=== PATIENT | female | born 1930 | race Caucasian/White ===

== ENCOUNTER → 2017-08-29 | Outpatient (CLI) | payer MEDICARE, BC ==
[~2017-08-29] MED LIST: ASPI81CH; Cleocin HCl300 MG PO; ERGO400; EZET10-10 PO; FURO40; HYDR1TAB94 PO; METO25ER PO; OMEP20ER PO; POTCHL20ER PO; Prednisone20 MG PO; Prilosec20 MG PO; Zantac150 MG PO
== END | disposition home or self-care (01) ==
LOC: OLS 15:49 → LAB SHORT 15:49
DX: A49.01 Methicillin susceptible Staphylococcus aureus infection, unspecified site (principal)
CPT/HCPCS: 87070; 87077; 87186; 87205

== ENCOUNTER 2017-12-27 00:11 | Day surgery (SDC) | payer MEDICARE, BC ==
[~2017-12-27 00:11] MED LIST changes: +Bactrim Ds Tab1 EACH PO; +CELE200; +FLONASE ALLERG9.9 ML; +Furosemide20 MG PO; +METO50ER PO; +OMEPRAZOLE MAGN20 MG PO; +PRAVASTATIN SOD10 MG
== END 2017-12-27 22:39 | disposition home or self-care (01) ==
LOC: WOUND
DX: L97.929 Non-pressure chronic ulcer of unspecified part of left lower leg with unspecified severity (principal); L97.919 Non-pressure chronic ulcer of unspecified part of right lower leg with unspecified severity; I73.9 Peripheral vascular disease, unspecified; R60.0 Localized edema; I10 Essential (primary) hypertension
CPT/HCPCS: 87070; 87205

== ENCOUNTER 2018-02-21 00:07 | Day surgery (SDC) | payer MEDICARE, BC ==
[~2018-02-21 00:07] MED LIST changes: -CELE200; +CELE200 PO; +CEPH250A PO; +CEPH500 PO; +DONE10 PO; +HYDROCREAM28.4 GM TOP; +LATANOPROST 0.7.5 ML BOTHEYES; +MICARDIS HCT PO; -PRAVASTATIN SOD10 MG; +PRAVASTATIN SOD10 MG PO; +TIMOPTIC 0.5%1 EACH LEFTEYE
== END 2018-02-21 22:41 | disposition home or self-care (01) ==
LOC: WOUND 00:07
DX: L97.822 Non-pressure chronic ulcer of other part of left lower leg with fat layer exposed (principal); L98.499 Non-pressure chronic ulcer of skin of other sites with unspecified severity; I87.2 Venous insufficiency (chronic) (peripheral); I73.9 Peripheral vascular disease, unspecified; R60.9 Edema, unspecified; I10 Essential (primary) hypertension

== ENCOUNTER 2018-03-28 00:24 | Day surgery (SDC) | payer MEDICARE, BC | END 2018-03-28 23:01 | disposition home or self-care (01) | LOC: WOUND 00:24 | DX: L97.822 Non-pressure chronic ulcer of other part of left lower leg with fat layer exposed (principal); L98.499 Non-pressure chronic ulcer of skin of other sites with unspecified severity; I87.2 Venous insufficiency (chronic) (peripheral); I73.9 Peripheral vascular disease, unspecified; R60.9 Edema, unspecified; I10 Essential (primary) hypertension ==

== ENCOUNTER 2018-04-04 14:20 | Day surgery (SDC) | payer MEDICARE, BC | END 2018-04-04 22:50 | disposition home or self-care (01) | LOC: WOUND 14:20 | DX: L03.116 Cellulitis of left lower limb (principal); L97.822 Non-pressure chronic ulcer of other part of left lower leg with fat layer exposed; I87.2 Venous insufficiency (chronic) (peripheral); I73.9 Peripheral vascular disease, unspecified; R60.9 Edema, unspecified; I10 Essential (primary) hypertension ==

== ENCOUNTER 2018-04-18 00:38 | Day surgery (SDC) | payer MEDICARE, BC | END 2018-04-18 22:40 | disposition home or self-care (01) | LOC: WOUND 00:38 | DX: L97.822 Non-pressure chronic ulcer of other part of left lower leg with fat layer exposed (principal); L97.823 Non-pressure chronic ulcer of other part of left lower leg with necrosis of muscle; F03.90 Unspecified dementia, unspecified severity, without behavioral disturbance, psychotic disturbance, mood disturbance, and anxiety; I87.2 Venous insufficiency (chronic) (peripheral); I73.9 Peripheral vascular disease, unspecified; R60.9 Edema, unspecified; I10 Essential (primary) hypertension ==

== ENCOUNTER 2018-04-25 00:15 | Day surgery (SDC) | payer MEDICARE, BC | END 2018-04-25 22:45 | disposition home or self-care (01) | LOC: WOUND 00:15 | DX: L97.822 Non-pressure chronic ulcer of other part of left lower leg with fat layer exposed (principal); I87.2 Venous insufficiency (chronic) (peripheral); I73.9 Peripheral vascular disease, unspecified; R60.9 Edema, unspecified; I10 Essential (primary) hypertension | CPT/HCPCS: 87070; 87075; 87077; 87186; 87205 ==

== ENCOUNTER 2018-05-30 00:26 | Day surgery (SDC) | payer MEDICARE, BC | END 2018-05-30 22:37 | disposition home or self-care (01) | LOC: WOUND 00:26 | DX: L97.826 Non-pressure chronic ulcer of other part of left lower leg with bone involvement without evidence of necrosis (principal); I10 Essential (primary) hypertension; F03.90 Unspecified dementia, unspecified severity, without behavioral disturbance, psychotic disturbance, mood disturbance, and anxiety; I87.2 Venous insufficiency (chronic) (peripheral); I73.9 Peripheral vascular disease, unspecified ==

== ENCOUNTER 2018-06-06 01:16 | Day surgery (SDC) | payer MEDICARE, BC | END 2018-06-06 23:21 | disposition home or self-care (01) | LOC: WOUND 01:16 | DX: I87.2 Venous insufficiency (chronic) (peripheral) (principal); L97.826 Non-pressure chronic ulcer of other part of left lower leg with bone involvement without evidence of necrosis; L98.499 Non-pressure chronic ulcer of skin of other sites with unspecified severity; L97.822 Non-pressure chronic ulcer of other part of left lower leg with fat layer exposed; I73.9 Peripheral vascular disease, unspecified; I10 Essential (primary) hypertension; F03.90 Unspecified dementia, unspecified severity, without behavioral disturbance, psychotic disturbance, mood disturbance, and anxiety ==

== ENCOUNTER 2018-06-20 13:42 | Day surgery (SDC) | payer MEDICARE, BC | END 2018-06-20 22:50 | disposition home or self-care (01) | LOC: WOUND 13:42 | DX: I87.2 Venous insufficiency (chronic) (peripheral) (principal); L97.826 Non-pressure chronic ulcer of other part of left lower leg with bone involvement without evidence of necrosis; I73.9 Peripheral vascular disease, unspecified; I10 Essential (primary) hypertension; F03.90 Unspecified dementia, unspecified severity, without behavioral disturbance, psychotic disturbance, mood disturbance, and anxiety | CPT/HCPCS: G0463 ==

== ENCOUNTER 2018-06-27 13:55 | Day surgery (SDC) | payer MEDICARE, BC | END 2018-06-27 22:40 | disposition home or self-care (01) | LOC: WOUND 13:55 | DX: I87.2 Venous insufficiency (chronic) (peripheral) (principal); L97.826 Non-pressure chronic ulcer of other part of left lower leg with bone involvement without evidence of necrosis; I10 Essential (primary) hypertension; F03.90 Unspecified dementia, unspecified severity, without behavioral disturbance, psychotic disturbance, mood disturbance, and anxiety | CPT/HCPCS: G0463 ==

== ENCOUNTER 2018-06-30 14:20 | Day surgery (SDC) | payer MEDICARE, BC | END 2018-06-30 23:01 | disposition home or self-care (01) | LOC: WOUND 14:20 | DX: I87.2 Venous insufficiency (chronic) (peripheral) (principal); L97.822 Non-pressure chronic ulcer of other part of left lower leg with fat layer exposed; I10 Essential (primary) hypertension; F03.90 Unspecified dementia, unspecified severity, without behavioral disturbance, psychotic disturbance, mood disturbance, and anxiety ==

== ENCOUNTER 2018-07-04 13:50 | Day surgery (SDC) | payer MEDICARE, BC | END 2018-07-04 22:49 | disposition home or self-care (01) | LOC: WOUND 13:50 | DX: L97.826 Non-pressure chronic ulcer of other part of left lower leg with bone involvement without evidence of necrosis (principal); I87.2 Venous insufficiency (chronic) (peripheral); I10 Essential (primary) hypertension; F03.90 Unspecified dementia, unspecified severity, without behavioral disturbance, psychotic disturbance, mood disturbance, and anxiety ==

== ENCOUNTER 2018-07-11 13:45 | Day surgery (SDC) | payer MEDICARE, BC | END 2018-07-11 23:01 | disposition home or self-care (01) | LOC: WOUND 13:45 | DX: L97.822 Non-pressure chronic ulcer of other part of left lower leg with fat layer exposed (principal); I10 Essential (primary) hypertension; I87.2 Venous insufficiency (chronic) (peripheral); I73.9 Peripheral vascular disease, unspecified ==

== ENCOUNTER 2018-07-18 13:38 | Day surgery (SDC) | payer MEDICARE, BC | END 2018-07-18 22:45 | disposition home or self-care (01) | LOC: WOUND 13:38 | DX: L97.822 Non-pressure chronic ulcer of other part of left lower leg with fat layer exposed (principal); I87.2 Venous insufficiency (chronic) (peripheral); I73.9 Peripheral vascular disease, unspecified; I10 Essential (primary) hypertension; F03.90 Unspecified dementia, unspecified severity, without behavioral disturbance, psychotic disturbance, mood disturbance, and anxiety ==

== ENCOUNTER 2018-07-25 13:41 | Day surgery (SDC) | payer MEDICARE, BC | END 2018-07-25 22:55 | disposition home or self-care (01) | LOC: WOUND 13:41 | DX: L97.826 Non-pressure chronic ulcer of other part of left lower leg with bone involvement without evidence of necrosis (principal); I10 Essential (primary) hypertension; I87.2 Venous insufficiency (chronic) (peripheral); I73.9 Peripheral vascular disease, unspecified ==

== ENCOUNTER 2018-08-01 13:41 | Day surgery (SDC) | payer MEDICARE, BC | END 2018-08-01 23:09 | disposition home or self-care (01) | LOC: WOUND 13:41 | DX: L97.222 Non-pressure chronic ulcer of left calf with fat layer exposed (principal); L97.826 Non-pressure chronic ulcer of other part of left lower leg with bone involvement without evidence of necrosis; I10 Essential (primary) hypertension; I87.2 Venous insufficiency (chronic) (peripheral); I73.9 Peripheral vascular disease, unspecified ==

== ENCOUNTER 2018-08-08 00:22 | Day surgery (SDC) | payer MEDICARE, BC | END 2018-08-08 23:00 | disposition home or self-care (01) | LOC: WOUND 00:22 | DX: L97.822 Non-pressure chronic ulcer of other part of left lower leg with fat layer exposed (principal); I10 Essential (primary) hypertension; I73.9 Peripheral vascular disease, unspecified; I87.2 Venous insufficiency (chronic) (peripheral); F03.90 Unspecified dementia, unspecified severity, without behavioral disturbance, psychotic disturbance, mood disturbance, and anxiety ==

== ENCOUNTER 2018-08-15 14:39 | Day surgery (SDC) | payer MEDICARE, BC | END 2018-08-15 23:24 | disposition home or self-care (01) | LOC: WOUND 14:39 | DX: L97.822 Non-pressure chronic ulcer of other part of left lower leg with fat layer exposed (principal); I10 Essential (primary) hypertension; F03.90 Unspecified dementia, unspecified severity, without behavioral disturbance, psychotic disturbance, mood disturbance, and anxiety; I87.2 Venous insufficiency (chronic) (peripheral) ==

== ENCOUNTER 2018-08-22 13:37 | Day surgery (SDC) | payer MEDICARE, BC | END 2018-08-22 22:47 | disposition home or self-care (01) | LOC: WOUND 13:37 | DX: L97.821 Non-pressure chronic ulcer of other part of left lower leg limited to breakdown of skin (principal); L98.499 Non-pressure chronic ulcer of skin of other sites with unspecified severity; I87.2 Venous insufficiency (chronic) (peripheral); I73.9 Peripheral vascular disease, unspecified; I10 Essential (primary) hypertension; F03.90 Unspecified dementia, unspecified severity, without behavioral disturbance, psychotic disturbance, mood disturbance, and anxiety ==

== ENCOUNTER 2018-08-29 14:40 | Day surgery (SDC) | payer MEDICARE, BC | END 2018-08-29 23:01 | disposition home or self-care (01) | LOC: WOUND 14:40 | DX: L97.829 Non-pressure chronic ulcer of other part of left lower leg with unspecified severity (principal); I87.2 Venous insufficiency (chronic) (peripheral); I10 Essential (primary) hypertension; F03.90 Unspecified dementia, unspecified severity, without behavioral disturbance, psychotic disturbance, mood disturbance, and anxiety; Z79.899 Other long term (current) drug therapy ==

== ENCOUNTER 2018-09-05 13:45 | Day surgery (SDC) | payer MEDICARE, BC | END 2018-09-05 23:42 | disposition home or self-care (01) | LOC: WOUND 13:45 | DX: L97.821 Non-pressure chronic ulcer of other part of left lower leg limited to breakdown of skin (principal); I10 Essential (primary) hypertension; F03.90 Unspecified dementia, unspecified severity, without behavioral disturbance, psychotic disturbance, mood disturbance, and anxiety ==

== ENCOUNTER 2018-09-19 13:40 | Day surgery (SDC) | payer MEDICARE, BC | END 2018-09-19 23:08 | disposition home or self-care (01) | LOC: WOUND 13:40 | PROC: 2W1MX6Z Compression of Left Lower Extremity using Pressure Dressing (ICD-10-PCS; principal; 2018-09-19) | DX: I83.028 Varicose veins of left lower extremity with ulcer other part of lower leg (principal); L97.821 Non-pressure chronic ulcer of other part of left lower leg limited to breakdown of skin; F03.90 Unspecified dementia, unspecified severity, without behavioral disturbance, psychotic disturbance, mood disturbance, and anxiety; I87.2 Venous insufficiency (chronic) (peripheral); R60.9 Edema, unspecified; I10 Essential (primary) hypertension ==

== ENCOUNTER 2018-09-26 00:18 | Day surgery (SDC) | payer MEDICARE, BC | END 2018-09-26 22:47 | disposition home or self-care (01) | LOC: WOUND 00:18 | PROC: 2W1RX6Z Compression of Left Lower Leg using Pressure Dressing (ICD-10-PCS; principal; 2018-09-26) | DX: L97.929 Non-pressure chronic ulcer of unspecified part of left lower leg with unspecified severity (principal); I87.2 Venous insufficiency (chronic) (peripheral); R60.9 Edema, unspecified; I10 Essential (primary) hypertension; F03.90 Unspecified dementia, unspecified severity, without behavioral disturbance, psychotic disturbance, mood disturbance, and anxiety ==

== ENCOUNTER 2018-10-03 00:18 | Day surgery (SDC) | payer MEDICARE, BC | END 2018-10-03 22:52 | disposition home or self-care (01) | LOC: WOUND 00:18 | DX: L97.829 Non-pressure chronic ulcer of other part of left lower leg with unspecified severity (principal); I87.2 Venous insufficiency (chronic) (peripheral); I10 Essential (primary) hypertension; F03.90 Unspecified dementia, unspecified severity, without behavioral disturbance, psychotic disturbance, mood disturbance, and anxiety ==

== ENCOUNTER 2018-10-10 00:24 | Day surgery (SDC) | payer MEDICARE, BC | END 2018-10-10 22:50 | disposition home or self-care (01) | LOC: WOUND 00:24 | DX: L97.829 Non-pressure chronic ulcer of other part of left lower leg with unspecified severity (principal); I87.2 Venous insufficiency (chronic) (peripheral); I10 Essential (primary) hypertension ==

== ENCOUNTER 2018-10-17 00:26 | Day surgery (SDC) | payer MEDICARE, BC | END 2018-10-17 23:33 | disposition home or self-care (01) | LOC: WOUND 00:26 | DX: L97.829 Non-pressure chronic ulcer of other part of left lower leg with unspecified severity (principal); I87.2 Venous insufficiency (chronic) (peripheral); I10 Essential (primary) hypertension | CPT/HCPCS: G0463 ==

== ENCOUNTER 2020-03-30 17:19 | Inpatient (IN) | payer MEDICARE, BC, OTHER ==
[~2020-03-30] VITALS: Ht 165.1 cm; Wt 71.7 kg
[~2020-03-30 17:19] MED LIST changes: -DONE10 PO; -METO50ER PO
[2020-03-30 18:17] LABS: BASOPHILS ABSOLUTE AUTO 0.02 K/mm3 (0.00-0.23); BASOPHILS PERCENT AUTO 0 % (0-2); EOSINOPHILS ABSOLUTE AUTO 0.02 K/mm3 (0.00-0.68); EOSINOPHILS PERCENT AUTO 0 % (0-6); Hematocrit 43.9 % (33.0-51.0); Hemoglobin 12.3 g/dL (11.5-16.0); IMMATURE GRAN ABSOLUTE AUTO 0.09 K/mm3 (0.00-0.10); IMMATURE GRAN PERCENT AUTO 1 % (0-1); LYMPHOCYTES ABSOLUTE AUTO 0.65 K/mm3 (0.84-5.20); LYMPHOCYTES PERCENT AUTO 6 % (21-46); MONOCYTES ABSOLUTE AUTO 0.88 K/mm3 (0.16-1.47); MONOCYTES PERCENT AUTO 8 % (4-13); Mean Corpuscular Volume 89 fL (80-100); Mean Platelet Volume 10.5 fL (9.1-12.4); NEUTROPHILS ABSOLUTE AUTO 8.91 K/mm3 (1.96-9.15); NEUTROPHILS PERCENT AUTO 84 % (41-73); NRBC ABSOLUTE 0.02 K/mm3 (0.00-0.02); NRBC Auto 0.2 /100 WBC (0.0-0.2); Platelet Count 236 K/mm3 (150-400); RDW Coefficient Variation 15.9 % (11.7-14.2); RDW Standard Deviation 51.8 fL (35.1-46.3); Red Blood Cell Count 4.92 M/mm3 (3.80-5.20); White Blood Cell Count 10.57 K/mm3 (4.00-11.30)
[2020-03-30 18:31] LABS: Albumin, Blood 2.9 g/dL (3.4-5.0); Albumin/Globulin Ratio 0.5 (0.8-1.8); Bilirubin, Total 1.2 mg/dL (0.1-1.0); Bun/Creatinine Ratio 25.1 (12.0-20.0); Calcium, Blood 8.6 mg/dL (8.5-10.1); Creatinine, Blood 1.83 mg/dL (0.40-1.00); Globulin, Blood 5.6 g/dL (2.2-4.0); Phosphorus, Blood 4.5 mg/dL (2.5-4.9); Potassium, Blood 4.5 mmol/L (3.5-5.5); Total Protein, Blood 8.5 g/dL (6.4-8.2); Troponin I 0.075 ng/mL (0.000-0.040)
[2020-03-30 18:52] LABS: Source, Urine Clean Catch
[2020-03-30 18:55] LABS: Appearance, Urine Turbid (Clear); Blood, Urine 5+ (Neg); Color, Urine Amber (P-Yellow); Glucose Qualitative, Urine Neg (Neg); Ketones, Urine Neg (Neg); Leukocyte Esterase, Urine 3+ (Neg); Nitrite, Urine Neg (Neg); Protein, Urine 4+ (Neg); Urobilinogen, Urine 3+ (Normal)
[2020-03-30 18:57] LABS: Bilirubin, Urine 1+ (Neg)
[2020-03-30 19:01] LABS: White Blood Cells, Urine TNTC /hpf (0-5)
[2020-03-30 19:02] LABS: Bacteria Many /hpf; Squamous Epithelial Cells Few /hpf (Few)
[2020-03-30 19:32] LABS: Influenza A, PCR Negative (NEGATIVE); Influenza B, PCR Negative (NEGATIVE); Resp Syncytial Virus, PCR Negative (NEGATIVE); SARS-Cov-2 (COVID-19) PCR, MMC Negative (NEGATIVE)
--- NOTE | 2020-03-31 01:43 | NUR ---
PT's TROPONIN AT 0047 IS 0.192. TELE NSR @ 75BPM, BP: 126/71. PT CALM AND RESTED IN BED. PT IN NO APPARENT DISTRESS. NOTIFIED DR. SANDRA VIA PHONE CALL. NO FURTHER ORDERS NOTED. NEXT TROP DRAW IS AT 0630 03/31/20.
--- NOTE | 2020-03-31 04:42 | NUR ---
RADIOLOGY SCHEDULER SUMMARY PT ADMITTED FROM ED AT AROUND 2133, RECEIVED REPORT FROM KENA GAMBOA. PT A&0X4, ABLE TO MAKE NEEDS KNOWN, PLEASANT AND COOPERATIVE TO CARE. PT's DAUGHTER PRESENT DURING PT WAS TRANSPORTED TO [facility]. NO C/O PAIN OR ANY DISCOMFORT THIS SHIFT. NO C/O CP, SOB OR N&V. PT ON CPAP AT NIGHT, SAT >90%, LS COARSE T/O. PT IS INCONTINENT, ATTENDS IN PLACE. REQUIRES 1-2P ASSIST D/T WEAKNESS AND SOB. PT ON TELE NSR 70's. PT CALM AND RESTED IN BED AT THIS TIME. BED AT LOWEST POSITION. CALL LIGHT WITHIN REACH.
[2020-03-31 07:26] LABS: BASOPHILS ABSOLUTE AUTO 0.02 K/mm3 (0.00-0.23); BASOPHILS PERCENT AUTO 0 % (0-2); EOSINOPHILS PERCENT AUTO 0 % (0-6); Hematocrit 33.3 % (33.0-51.0); Hemoglobin 9.6 g/dL (11.5-16.0); IMMATURE GRAN ABSOLUTE AUTO 0.05 K/mm3 (0.00-0.10); IMMATURE GRAN PERCENT AUTO 1 % (0-1); LYMPHOCYTES PERCENT AUTO 12 % (21-46); MONOCYTES ABSOLUTE AUTO 1.05 K/mm3 (0.16-1.47); MONOCYTES PERCENT AUTO 12 % (4-13); Mean Corpuscular HGB 25.5 pg (26.0-34.0); Mean Corpuscular HGB Conc 28.8 g/dL (31.5-36.5); Mean Corpuscular Volume 89 fL (80-100); Mean Platelet Volume 10.5 fL (9.1-12.4); NEUTROPHILS ABSOLUTE AUTO 6.56 K/mm3 (1.96-9.15); NEUTROPHILS PERCENT AUTO 76 % (41-73); Platelet Count 163 K/mm3 (150-400); RDW Coefficient Variation 15.8 % (11.7-14.2); Red Blood Cell Count 3.76 M/mm3 (3.80-5.20); White Blood Cell Count 8.68 K/mm3 (4.00-11.30)
[2020-03-31 07:46] LABS: Creatinine, Blood 1.96 mg/dL (0.40-1.00); Potassium, Blood 4.5 mmol/L (3.5-5.5)
--- NOTE | 2020-03-31 18:22 | NUR ---
SHIFT SUMMARY NO ACUTE CHANGES T/O SHIFT, A&O TO SELF AND PLACE ONLY THIS AM. FORGETFUL T/O DAY REGARDING WHERE SHE WAS AND WHY, PT EASILY REORIENTED. PT IS CURRENTLY ON 3.5 L/MIN TO SUSTAIN AN O2 SATURATION GREATER THAN 90%. LUNG SOUNDS WERE COARSE T/O THIS AM. LASIX AND METOPROLOL HELD THIS AM DUE TO SBP LOWER THAN 105. LASIX WAS ABLE TO BE GIVEN @ TIME OF EVENING DOSE. EAR PROBE IN PLACE DUE TO PT HAVING POOR PERFUSION TO THE HANDS. HANDS ARE COLD AND BLUE. BLE ARE SWOLLEN AND DRY. NO C/O CHEST PAIN OR PRESSURE T/O SHIFT. PT IS CURRENTLY SITTING UP IN CHAIR AND APPEARS TO BE IN NO DISTRESS, CALL LIGHT WITHIN REACH, CHAIR ALARM ON.
--- NOTE | 2020-03-31 19:39 | NUR ---
AWAKE. SITTING IN LOUNGE CHAIR AT BEDSIDE. AFFECT CHEERFUL. DENIED PAIN. CALL LIGHT IN REACH
--- NOTE | 2020-04-01 04:20 | NUR ---
SHIFT SUMMARY HAS BEEN RESTING QUIETLY WITH OCCASIONAL INTERRUPTIONS DUE TO CONTINUOUS PULSE OX AND CPAP FACE MASK LEAKAGE - FACE MASK ADDRESSED BY RT. CURRENTLY SATS IN THE 90'S. INCONT AND CHANGED - SEE FLOW SHEETS FOR DETAILS. CALL LIGHT IN REACH.
[2020-04-01 05:21] LABS: BASOPHILS ABSOLUTE AUTO 0.02 K/mm3 (0.00-0.23); BASOPHILS PERCENT AUTO 0 % (0-2); EOSINOPHILS ABSOLUTE AUTO 0.01 K/mm3 (0.00-0.68); EOSINOPHILS PERCENT AUTO 0 % (0-6); Hematocrit 35.7 % (33.0-51.0); Hemoglobin 9.8 g/dL (11.5-16.0); IMMATURE GRAN ABSOLUTE AUTO 0.06 K/mm3 (0.00-0.10); IMMATURE GRAN PERCENT AUTO 1 % (0-1); LYMPHOCYTES ABSOLUTE AUTO 0.74 K/mm3 (0.84-5.20); LYMPHOCYTES PERCENT AUTO 9 % (21-46); MONOCYTES ABSOLUTE AUTO 0.83 K/mm3 (0.16-1.47); MONOCYTES PERCENT AUTO 10 % (4-13); Mean Corpuscular HGB 24.4 pg (26.0-34.0); Mean Corpuscular HGB Conc 27.5 g/dL (31.5-36.5); Mean Corpuscular Volume 89 fL (80-100); Mean Platelet Volume 10.5 fL (9.1-12.4); NEUTROPHILS ABSOLUTE AUTO 6.66 K/mm3 (1.96-9.15); NEUTROPHILS PERCENT AUTO 80 % (41-73); Platelet Count 140 K/mm3 (150-400); RDW Coefficient Variation 15.7 % (11.7-14.2); RDW Standard Deviation 50.8 fL (35.1-46.3); Red Blood Cell Count 4.01 M/mm3 (3.80-5.20); White Blood Cell Count 8.32 K/mm3 (4.00-11.30)
[2020-04-01 05:47] LABS: Albumin, Blood 2.3 g/dL (3.4-5.0); Albumin/Globulin Ratio 0.5 (0.8-1.8); Bilirubin, Total 0.6 mg/dL (0.1-1.0); Bun/Creatinine Ratio 23.7 (12.0-20.0); Calcium, Blood 8.2 mg/dL (8.5-10.1); Creatinine, Blood 2.07 mg/dL (0.40-1.00); Globulin, Blood 4.7 g/dL (2.2-4.0); Potassium, Blood 4.3 mmol/L (3.5-5.5)
--- NOTE | 2020-04-01 18:12 | NUR ---
SHIFT SUMMARY PATIENT DENIES PAIN, NAUSEA, AND SHORTNESS OF BREATH. PATIENT MAINTAINING OXYGEN SATURATION ABOVE 92% ON 4L/NC. PATIENT WORKED WITH PT/OT TODAY. UP 1 ASSIST WITH GAIT BELT/FWW TO CHAIR. UP IN CHAIR FOR MEALS. EATING AND DRINKING WELL. DAUGHTER VISITED IN AFTERNOON AND BROUGHT IN HOME CPAP. DR. ORTEGA CONSULTED. RENAL ULTRASOUND COMPLETED TODAY, LUNG STUDY TOMORROW.
--- NOTE | 2020-04-01 19:39 | NUR ---
AWAKE, FININSHING DINNER. CALL LIGHT IN REACH
--- NOTE | 2020-04-02 03:07 | NUR ---
SHIFT SUMMARY HAS BEEN RESTING QUIETLY AT INTERVALS THIS SHIFT SINCE ASSISTED TO BED AT HS. CPAP IN USE, O2 SATS IN THE 90'S SINCE CPAP ADJUSTED AND PT NOT MOVING MASK. CALL LIGHT IN REACH.
[2020-04-02 05:27] LABS: BASOPHILS ABSOLUTE AUTO 0.02 K/mm3 (0.00-0.23); BASOPHILS PERCENT AUTO 0 % (0-2); EOSINOPHILS ABSOLUTE AUTO 0.06 K/mm3 (0.00-0.68); EOSINOPHILS PERCENT AUTO 1 % (0-6); Hematocrit 33.9 % (33.0-51.0); Hemoglobin 9.8 g/dL (11.5-16.0); IMMATURE GRAN ABSOLUTE AUTO 0.02 K/mm3 (0.00-0.10); IMMATURE GRAN PERCENT AUTO 0 % (0-1); LYMPHOCYTES ABSOLUTE AUTO 0.86 K/mm3 (0.84-5.20); LYMPHOCYTES PERCENT AUTO 14 % (21-46); MONOCYTES ABSOLUTE AUTO 0.65 K/mm3 (0.16-1.47); MONOCYTES PERCENT AUTO 10 % (4-13); Mean Corpuscular HGB 24.8 pg (26.0-34.0); Mean Corpuscular HGB Conc 28.9 g/dL (31.5-36.5); Mean Corpuscular Volume 86 fL (80-100); Mean Platelet Volume 10.3 fL (9.1-12.4); NEUTROPHILS ABSOLUTE AUTO 4.64 K/mm3 (1.96-9.15); NEUTROPHILS PERCENT AUTO 74 % (41-73); Platelet Count 157 K/mm3 (150-400); RDW Coefficient Variation 15.5 % (11.7-14.2); Red Blood Cell Count 3.95 M/mm3 (3.80-5.20); White Blood Cell Count 6.25 K/mm3 (4.00-11.30)
[2020-04-02 05:50] LABS: Albumin, Blood 2.2 g/dL (3.4-5.0); Albumin/Globulin Ratio 0.5 (0.8-1.8); Bilirubin, Total 0.5 mg/dL (0.1-1.0); Bun/Creatinine Ratio 26.2 (12.0-20.0); Creatinine, Blood 1.68 mg/dL (0.40-1.00); Globulin, Blood 4.5 g/dL (2.2-4.0); Magnesium, Blood 1.7 mg/dL (1.6-2.4); Phosphorus, Blood 2.2 mg/dL (2.5-4.9); Potassium, Blood 4.1 mmol/L (3.5-5.5); Total Protein, Blood 6.7 g/dL (6.4-8.2)
[2020-04-02 13:52] LABS: International Normalized Ratio 1.19; Prothrombin Time Results 12.6 Sec (9.7-11.5)
--- NOTE | 2020-04-02 17:07 | NUR ---
Spiritual care note: Mrs. Olson was working very hard to breathe when I visited. This made it impossible to hold conversation. Nurses and CNAs working dillegently. Pt told me "I'm fine honey." I will remain available.
--- NOTE | 2020-04-02 18:32 | NUR ---
SHIFT SUMMARY PT IS A&O PT KNOWS NAME,, FAMILY. IT IS HARD TO DETERMINE HOW MUCH PATIENT UNDERSTANDS ABOUT WHY SHE IS IN HOSPITAL. PT IS 2 PERSON TRANSFER STANDBY PIVIOT. PT IS ON 6L O2 DURING SHIFT, WHEN PT IS TITRATED DOWN PT O2 LEVEL DROPS IN TO MID 80'S. PT HOME CPAP MACHINE WAS BROUGHT IN AND FAMILY WOULD LIKE PT TO USE IT, RT HAS BEEN NOTIFIED. PT STARTED HEPARIN DRIP THIS SHIFT. NEW IV WAS PLACED THIS SHIFT. PT CURENTLY IN BED WATCHING TV. BED IN LOWEST POSITION, CALL LIGHT W/IN REACH.
--- NOTE | 2020-04-02 22:03 | NUR ---
PHARMACIST CORRESPONDENCE SPOKE TO PHARMACIST ABOUT APTT BEING CRITICALLY HIGH. ASKED THIS RN TO TURN OFF HEPARIN FOR 1 HR AND THEN PATIENT WILL HAVE SAME LAB RE-DRAWN.
--- NOTE | 2020-04-02 23:30 | NUR ---
PHARMACIST CORRESPONDENCE SPOKE TO PHARMACIST ABOUT APTT RE-CHECK VALUE. PHARMACIST WILL REDOSE TO 13 U/KG/HR.
--- NOTE | 2020-04-03 05:44 | NUR ---
SHIFT SUMMARY A/O, ABLE TO MAKE NEEDS KNOWN. COOPERATIVE WITH CARE. ANSWERS QUESTIONS APPROPRIATELY. NO C/O PAIN/DISCOMFORT. APPEARED TO REST MUCH OF THE NIGHT. CPAP @ HS WITH O2 BLEED. MINIMAL DESATURATION. HEPARIN CONTINUES TO INFUSE WITHOUT COMPLICATIONS. ATTENDS IN PLACE; ROUTINE CHECKS. BED REMAINED IN LOWEST POSITION; ALARM ON. CALL LIGHT IN REACH. CONTINUE WITH CURRENT PLAN OF CARE. REPORT TO ONCOMING RN.
[2020-04-03 07:03] LABS: Hematocrit 35.7 % (33.0-51.0); Hemoglobin 10.5 g/dL (11.5-16.0)
[2020-04-03 07:21] LABS: Albumin, Blood 2.3 g/dL (3.4-5.0); Anion Gap 4 mmol/L (6-16); Blood Urea Nitrogen 38 mg/dL (8-24); Bun/Creatinine Ratio 25.7 (12.0-20.0); CO2, Blood 37 mmol/L (21-32); Calcium, Blood 8.3 mg/dL (8.5-10.1); Chloride, Blood 99 mmol/L (98-108); Creatinine, Blood 1.48 mg/dL (0.40-1.00); Glomerular Filtration Rate 35 (60-); Glucose, Blood 94 mg/dL (70-99); Magnesium, Blood 1.4 mg/dL (1.6-2.4); Phosphorus, Blood 2.3 mg/dL (2.5-4.9); Sodium, Blood 140 mmol/L (136-145)
--- NOTE | 2020-04-03 18:13 | NUR ---
shift summary PT IS ALERT AND ABLE TO MAKE NEEDS KNOWN. PT DOES HAVE BASELINE CONFUSION. PT WAS UP IN CHAIR FOR LUNCH BUT DECLINE FOR DINNER. PT COMPLAINE OF SOME PAIN IN HANDS AND WAS ORDERED APAP. PT INCONTINENT OF URNIN. PT DIET CHANGED TO PURE, NO STRAWS, PILLS ONE AT A TIME IN APPLESAUCE. PT DAUGHTER CAME TO VISIT DURING SHIFT AND WANTED TO KNOW REASON OF CHANGE, DISSCUED IT WITH DAUGHTER AND SHE SEEMED PLEASED AND ACCEPTED. PT CURENTLY IN BED EATING DINNER. CALL LIGHT W/IN REACH AND BED IN LOWEST POSITION.
--- NOTE | 2020-04-04 03:53 | NUR ---
SHIFT SUMMARY ALERT, ABLE TO MAKE NEEDS KNOWN. COOPERATIVE WITH CARE. ANSWERS QUESTIONS APPROPRIATELY. FORGETFUL AT TIMES. NO C/O PAIN/DISCOMFORT OVERNIGHT. CONTINUED CPAP OVERNIGHT WITH NEW MASK; VERY HELPFUL. HEPARIN CONTINUES TO INFUSE TO NEW 20G IV IN RFA WITHOUT COMPLICATIONS. APPEARED TO REST MUCH OF NIGHT. CONTINUES TO HAVE VERY LARGE VOIDS. REPOSITIONED. NO ACUTE CHANGES NOTED. BED REMAINED IN LOWEST POSITION; ALARM ON. CALL LIGHT WITHIN REACH. CONTINUE WITH CURRENT PLAN OF CARE. REPORT TO ONCOMING RN.
[2020-04-04 05:43] LABS: Hematocrit 35.9 % (33.0-51.0); Hemoglobin 10.7 g/dL (11.5-16.0)
[2020-04-04 06:10] LABS: Albumin, Blood 2.2 g/dL (3.4-5.0); Anion Gap 5 mmol/L (6-16); Blood Urea Nitrogen 37 mg/dL (8-24); Bun/Creatinine Ratio 26.2 (12.0-20.0); CO2, Blood 39 mmol/L (21-32); Calcium, Blood 8.5 mg/dL (8.5-10.1); Chloride, Blood 94 mmol/L (98-108); Creatinine, Blood 1.41 mg/dL (0.40-1.00); Glomerular Filtration Rate 37 (60-); Glucose, Blood 94 mg/dL (70-99); Magnesium, Blood 1.4 mg/dL (1.6-2.4); Phosphorus, Blood 2.2 mg/dL (2.5-4.9); Potassium, Blood 3.8 mmol/L (3.5-5.5); Sodium, Blood 138 mmol/L (136-145)
[2020-04-04 14:40] LABS: Source, Urine Catheter
[2020-04-04 14:44] LABS: Appearance, Urine Clear (Clear); Bilirubin, Urine Neg (Neg); Blood, Urine 1+ (Neg); Color, Urine Yellow (P-Yellow); Glucose Qualitative, Urine Neg (Neg); Ketones, Urine Neg (Neg); Leukocyte Esterase, Urine Neg (Neg); Nitrite, Urine Neg (Neg); Protein, Urine 1+ (Neg); Specific Gravity, Urine 1.005 (1.003-1.022); Urobilinogen, Urine NORM (Normal)
[2020-04-04 14:50] LABS: Red Blood Cells, Urine 0-2 /hpf (0-2); White Blood Cells, Urine 0-2 /hpf (0-5)
[2020-04-04 14:51] LABS: Bacteria Rare /hpf; Squamous Epithelial Cells Mod /hpf (Few); Transitional Epithelial Cells Few /hpf (0-Rare)
--- NOTE | 2020-04-04 16:11 | NUR ---
Review of pt needs with nursing. Will attempt advance directive and polst
--- NOTE | 2020-04-04 19:31 | NUR ---
SHIFT SUMMARY PT A&O WITH SOME FORGETFULLNESS. PT DENIED P/N/V THIS SHIFT. BENTON PLACE THIS SHIFT FOR 24 HOUR URIN COLLECTION. PT TOLLEREATED PROCEDURE WELL. TIRATED O2 FROM 6L TO 3L DRUING SHIFT. PT IS 2 PERS TRANSFER. PT CURENTLY IN BED SLEEPING, CALL LIGHT W/IN REACH.
[2020-04-05 05:37] LABS: Hematocrit 36.7 % (33.0-51.0); Hemoglobin 10.6 g/dL (11.5-16.0)
[2020-04-05 06:07] LABS: Albumin, Blood 2.2 g/dL (3.4-5.0); Anion Gap 6 mmol/L (6-16); Blood Urea Nitrogen 36 mg/dL (8-24); Bun/Creatinine Ratio 24.3 (12.0-20.0); CO2, Blood 42 mmol/L (21-32); Calcium, Blood 8.7 mg/dL (8.5-10.1); Chloride, Blood 90 mmol/L (98-108); Creatinine, Blood 1.48 mg/dL (0.40-1.00); Glomerular Filtration Rate 35 (60-); Glucose, Blood 94 mg/dL (70-99); Magnesium, Blood 1.5 mg/dL (1.6-2.4); Phosphorus, Blood 3.1 mg/dL (2.5-4.9); Potassium, Blood 3.8 mmol/L (3.5-5.5); Sodium, Blood 138 mmol/L (136-145)
--- NOTE | 2020-04-05 06:49 | NUR ---
Margarita had no complaints of pain or SOB overnight. Alarm on bed went off once or twice as patient would get up and ambulate to bathroom independently. Still a little unsteady on feet. No complaints of pain or SOB, however, viox still dipping into mid to high 80's with sleep
[2020-04-05 15:05] LABS: Protein, Urine Quantitative 19.5 mg/dL (0.0-11.9)
--- NOTE | 2020-04-05 16:49 | NUR ---
SUMMARY PT IS A/O X 2-3, SOMEWHAT FORGETFUL. SHE CONTINUES WEAK/FATIGUED HOWEVER STATE IMPROVING. SHE PARTICIPATED w MICHAEL TODAY, 1-2 ASSIST UP TO CHAIR w FWW. HAS BEEN OOB FOR MEALS. DR JIMÉNEZ IN TO SEE HER TODAY. D/C HEP GTT & START ELIQUIS TONIGHT. STATE PT WILL NEED SNF WHEN APPROP, FAMILY REQUESTING [facility], RN CARE MANAGERS NOTIFIED. BLE VERY DRY, LOTION APPLIED,, EDEMA HAS IMPROVED, 1+. LUNGS SEEMED CLEAR DECREASED, BIOX 90-91% 4L. VSS.
[2020-04-06 05:25] LABS: Hematocrit 37.9 % (33.0-51.0); Hemoglobin 11.1 g/dL (11.5-16.0)
[2020-04-06 05:55] LABS: Albumin, Blood 2.3 g/dL (3.4-5.0); Anion Gap 6 mmol/L (6-16); Blood Urea Nitrogen 39 mg/dL (8-24); Bun/Creatinine Ratio 26.2 (12.0-20.0); CO2, Blood 42 mmol/L (21-32); Calcium, Blood 8.6 mg/dL (8.5-10.1); Chloride, Blood 87 mmol/L (98-108); Creatinine, Blood 1.49 mg/dL (0.40-1.00); Glomerular Filtration Rate 35 (60-); Glucose, Blood 99 mg/dL (70-99); Magnesium, Blood 1.4 mg/dL (1.6-2.4); Phosphorus, Blood 2.6 mg/dL (2.5-4.9); Potassium, Blood 4.3 mmol/L (3.5-5.5); Sodium, Blood 135 mmol/L (136-145)
--- NOTE | 2020-04-06 07:16 | NUR ---
AUTOMOBILE BODY REPAIRER HELPER SUMMARY Margarita was more comfortable overnight sleeping completely supine in her bed. 02 on 3 liters via NC or CPAP. prior to going to bed, viox alarm went off regularily as patient was "sitting up and moving around". No complaints of pain, harsh non productive cough intermittantly while awake.
--- NOTE | 2020-04-06 18:38 | NUR ---
SUMMARY PT IS A/O X2-3, PLEASANT AFFECT. THIS AM IT TOOK HER A LITTLE WHILE TO ACCLIMATE, STATED SHE FELT LIKE "EVERYTHING IS GOING TOO FAST" HOWEVER EASILY REORIENTED. SHE STATES BREATHING CONTINUES TO IMPROVE, LUNGS DECREASED T/O, BIOX HAS BEEN FROM 90-96%. SHE GOT UP TO CHAIR FOR BF & STAYED UP MOST DAY, GAIT CONTINUES UNSTEADY. DR JIMÉNEZ STATE PLAN CONTINUES FOR SNF, MAYBE TUESDAY. VSS. +BM TODAY.
--- NOTE | 2020-04-07 03:56 | NUR ---
SHORTLY AFTER HS, Margarita called to say she was ready to get to bed. Before her CPAP could be placed, her oxygen sensor began indicating a saturation in the low to mid 80's sustained on 3 liters nasal canula. patient was mouth breathing and in no distress. CPAP was placed, also at 3 liters with no changes in saturations even after adjustment. RT was called to assess the situation. Mask fit was adjusted. 02 remained on 3 liters, and patient remained comfortable for balance of night. Lung sounds are more dim than night prior with scaattered crackles in dependent bases, Patient alert and cooperative all night
[2020-04-07 05:44] LABS: Hematocrit 37.9 % (33.0-51.0); Hemoglobin 11.1 g/dL (11.5-16.0)
[2020-04-07 06:00] LABS: Albumin, Blood 2.3 g/dL (3.4-5.0); Anion Gap 7 mmol/L (6-16); Blood Urea Nitrogen 53 mg/dL (8-24); Bun/Creatinine Ratio 27.5 (12.0-20.0); CO2, Blood 42 mmol/L (21-32); Calcium, Blood 8.9 mg/dL (8.5-10.1); Chloride, Blood 85 mmol/L (98-108); Creatinine, Blood 1.93 mg/dL (0.40-1.00); Glomerular Filtration Rate 26 (60-); Glucose, Blood 116 mg/dL (70-99); Magnesium, Blood 1.9 mg/dL (1.6-2.4); Phosphorus, Blood 2.9 mg/dL (2.5-4.9); Potassium, Blood 4.4 mmol/L (3.5-5.5); Sodium, Blood 134 mmol/L (136-145)
--- NOTE | 2020-04-07 16:42 | NUR ---
Spiritual care note: Mrs. Olson smiles easily and reports feeling better. She was appreciaitve of prayer and spiritual encouragement. No family present. She will D/C to rehab next. I will remain available.
--- NOTE | 2020-04-07 18:22 | NUR ---
PATIENT IS ALERT AND ORIENTED AND AND COOPERATIVE WITH CARE. THE PATIENT IS ON 3L O2 VIA NC. CPAP AT NIGHT AND WITH NAPS. CONTINUOUS PULSE OX IN PLACE. THE PATIENT'S DAUGHTER WAS AT THE BEDSIDE TODAY AND SPOKE WITH DR. JIMÉNEZ. SERENITY GAONA TODAY. THE PATIENT IS INCONTINENT OFF BOWEL AND BLADDER. WILL CONTINUE TO MONITOR
[2020-04-08 05:16] LABS: Hematocrit 34.9 % (33.0-51.0); Hemoglobin 10.1 g/dL (11.5-16.0)
[2020-04-08 05:32] LABS: Albumin, Blood 2.2 g/dL (3.4-5.0); Anion Gap 7 mmol/L (6-16); Blood Urea Nitrogen 66 mg/dL (8-24); Bun/Creatinine Ratio 28.2 (12.0-20.0); CO2, Blood 41 mmol/L (21-32); Calcium, Blood 8.7 mg/dL (8.5-10.1); Chloride, Blood 86 mmol/L (98-108); Creatinine, Blood 2.34 mg/dL (0.40-1.00); Glomerular Filtration Rate 21 (60-); Glucose, Blood 102 mg/dL (70-99); Magnesium, Blood 1.9 mg/dL (1.6-2.4); Phosphorus, Blood 4.7 mg/dL (2.5-4.9); Potassium, Blood 4.3 mmol/L (3.5-5.5); Sodium, Blood 134 mmol/L (136-145)
--- NOTE | 2020-04-08 06:23 | NUR ---
SHIFT SUMMARY PATIENT ALERT AND SLEEPY, BUT EASY TO ROUSE WITH VERBAL STIMULUS. SHE HAD NO COMPLAINTS OF PAIN. REMAINED ON HER CPAP OVERNIGHT AND SLEPT WELL. HER OXYGEN WOULD OCCASIONALLY DESATURATE DUE TO HER SLEEP APNEA AND THE PATIENT HAD TO BE REMINDED TO BREATHE. NO OTHER ISSUES NOTED. IV PATENT AND FLUSHED. BED IN LOWEST POSITION WITH WHEELS LOCKED AND ALARM ON. CALL LIGHT WITHIN REACH. REPORT GIVEN TO ONCOMING RN.
--- NOTE | 2020-04-08 17:07 | NUR ---
Review of patient needs and prognosis with daughter. She is not sure what she wants advised she needs to work with care managers and we talk some more about a plan of care. Review with home health care social worker pt manasa resisitant to the needed changes wants to stay in their family home. Marko review with daughter getting help in home. Theraputic time with patient got her a neck pillow had students round on her every thirty minutes for hydartion and stimulus. Plan is completion of polst and caregiver help for daughter.
[2020-04-09 05:39] LABS: Hemoglobin 9.5 g/dL (11.5-16.0)
[2020-04-09 06:22] LABS: Albumin, Blood 2.1 g/dL (3.4-5.0); Anion Gap 7 mmol/L (6-16); Blood Urea Nitrogen 72 mg/dL (8-24); Bun/Creatinine Ratio 35.8 (12.0-20.0); CO2, Blood 38 mmol/L (21-32); Calcium, Blood 8.4 mg/dL (8.5-10.1); Chloride, Blood 87 mmol/L (98-108); Creatinine, Blood 2.01 mg/dL (0.40-1.00); Glomerular Filtration Rate 25 (60-); Glucose, Blood 85 mg/dL (70-99); Magnesium, Blood 1.9 mg/dL (1.6-2.4); Phosphorus, Blood 3.7 mg/dL (2.5-4.9); Potassium, Blood 4.3 mmol/L (3.5-5.5); Sodium, Blood 132 mmol/L (136-145)
--- NOTE | 2020-04-09 07:27 | NUR ---
apartment maintenance summary pt a/o x2 to place and self. slept well tonight. pt is 1-2 assist to bsc needing a lot of ques. uses 3-4 L via nc during the day and cpap at night with cont. pulse ox satting in the mid to high 90's. pt does desat quick with exertion. denies chest and other pain. bed alarm in place, call light within reach. report given to oncoming rn.
--- NOTE | 2020-04-09 17:26 | NUR ---
PT AO AND COOPERATIVE OF CARE. PT HAS BEEN DOING WELL TODAY. PT HAS BEE VERY COMFORTABLE AND RELAXED. PT HAS HAD SOME INCREASED RESPIRATIONS, BUT APPEARS TO GET A BIT WORKED UP WHEN SHE FIRST WAKES AND THEN HER BREATHING RATE RELAXES. PT HAS BEEN BREATHING COMFORTABLY THROUGHOUT THE DAY. PT IS ON 2L NASAL CANULA AND MAINTAINS 91-94% CALL LIGHT IS WITHIN REACH WILL CONTINUE TO MONITOR.
[2020-04-10 05:34] LABS: Hematocrit 36.1 % (33.0-51.0); Hemoglobin 10.1 g/dL (11.5-16.0)
[2020-04-10 06:11] LABS: Albumin, Blood 2.1 g/dL (3.4-5.0); Anion Gap 4 mmol/L (6-16); Blood Urea Nitrogen 62 mg/dL (8-24); Bun/Creatinine Ratio 41.9 (12.0-20.0); CO2, Blood 39 mmol/L (21-32); Calcium, Blood 8.7 mg/dL (8.5-10.1); Chloride, Blood 90 mmol/L (98-108); Creatinine, Blood 1.48 mg/dL (0.40-1.00); Glomerular Filtration Rate 35 (60-); Glucose, Blood 89 mg/dL (70-99); Phosphorus, Blood 3.1 mg/dL (2.5-4.9); Potassium, Blood 4.8 mmol/L (3.5-5.5); Sodium, Blood 133 mmol/L (136-145)
--- NOTE | 2020-04-10 07:53 | NUR ---
SHIFT SUMMARY: A&OX3, VSS, NO REPORTS OF PAIN. INC. OF BOWEL AND BLADDER. BUTTOCKS AND GROIN ARE REDDENED. BARRIER CREAM IS APPLIED AFTER EACH INC. EPISODE WITH INC. CARE. BMX3, ARE SOFT FORMED. BED ALARM IS ON FOR SAFETY.
[2020-04-10 09:24] LABS: Influenza A, PCR Negative (NEGATIVE); Influenza B, PCR Negative (NEGATIVE); Resp Syncytial Virus, PCR Negative (NEGATIVE); SARS-Cov-2 (COVID-19) PCR, MMC Negative (NEGATIVE)
--- NOTE | 2020-04-10 11:26 | NUR ---
PT DISCHARGED FROM THE UNIT. IV REMOVED. CALLED [facility] TO GIVE REPORT. LEFT MESSAGE. PT LEFT VIA WHEELCHAIR WITH TRANSPORT.
== END 2020-04-10 10:26 | DRG 175 ==
LOC: ER 17:19 → MEDS 20:54
PROVIDERS: Emergency Medicine; Internal Medicine; Internal Medicine Nephrology; Pharmacist; ADMIT Family Medicine
DX: I26.99 Other pulmonary embolism without acute cor pulmonale (principal); J96.01 Acute respiratory failure with hypoxia; I13.0 Hypertensive heart and chronic kidney disease with heart failure and stage 1 through stage 4 chronic kidney disease, or unspecified chronic kidney disease; N18.4 Chronic kidney disease, stage 4 (severe); E87.1 Hypo-osmolality and hyponatremia; I24.8 Other forms of acute ischemic heart disease; N17.9 Acute kidney failure, unspecified; N25.81 Secondary hyperparathyroidism of renal origin; N39.0 Urinary tract infection, site not specified; I50.32 Chronic diastolic (congestive) heart failure; Z66 Do not resuscitate; D64.9 Anemia, unspecified; E78.5 Hyperlipidemia, unspecified; E83.39 Other disorders of phosphorus metabolism; E83.42 Hypomagnesemia; E88.09 Other disorders of plasma-protein metabolism, not elsewhere classified; F03.90 Unspecified dementia, unspecified severity, without behavioral disturbance, psychotic disturbance, mood disturbance, and anxiety; G47.33 Obstructive sleep apnea (adult) (pediatric); I27.20 Pulmonary hypertension, unspecified; J44.9 Chronic obstructive pulmonary disease, unspecified; K21.9 Gastro-esophageal reflux disease without esophagitis; K86.89 Other specified diseases of pancreas; B96.20 Unspecified Escherichia coli [E. coli] as the cause of diseases classified elsewhere; Z20.822 Contact with and (suspected) exposure to COVID-19
CPT/HCPCS: 0241U; 36415; 51702; 71045; 71046; 74150; 76770; 78582; 80048; 80053; 80069; 81001; 81050; 83735; 83880; 84100; 84156; 84484; 85014; 85018; 85025; 85610; 85730; 87077; 87086; 87186; 92526; 92610; 93005; 93010; 93306; 94660; 94760; 94762; 96365-59; 96375-59; 97110; 97112; 97116; 97162; 97165; 97530; 97535; 99285-25; A9270; A9540; J0696; J1644; J1940; J3475; J7040; J7060; P9612

== ENCOUNTER → 2020-07-14 | Outpatient (CLI) | payer MEDICARE, BC, OTHER ==
[~2020-07-14] MED LIST changes: +ALBU90OI INH; +Acerola C500 MG PO; +Acetaminophen325 M1 PO; +DOCU100 PO; +DONE10 PO; +ELIQUIS5 MG PO; +FERSU300 PO; +FURO40 PO; +METO50ER PO
[2020-07-14 18:26] LABS: Albumin, Blood 2.9 g/dL (3.4-5.0); Anion Gap 8 mmol/L (6-16); Blood Urea Nitrogen 25 mg/dL (8-24); Bun/Creatinine Ratio 26.6 (12.0-20.0); CO2, Blood 23 mmol/L (21-32); Calcium, Blood 8.6 mg/dL (8.5-10.1); Chloride, Blood 111 mmol/L (98-108); Creatinine, Blood 0.94 mg/dL (0.40-1.00); Glomerular Filtration Rate 60 (60-); Glucose, Blood 111 mg/dL (70-99); Phosphorus, Blood 3.1 mg/dL (2.5-4.9); Potassium, Blood 4.9 mmol/L (3.5-5.5); Sodium, Blood 142 mmol/L (136-145)
== END | disposition home or self-care (01) ==
LOC: LAB SHORT 15:30 → LAB 15:30
PROVIDERS: Family Medicine
DX: R60.0 Localized edema (principal)
CPT/HCPCS: 80069

== ENCOUNTER 2020-07-18 10:59 | Inpatient (IN) | payer MEDICARE, BC, OTHER ==
[~2020-07-18] VITALS: Ht 162.6 cm; Wt 64.5 kg
[~2020-07-18 10:59] MED LIST changes: -ALBU90OI INH; -Acerola C500 MG PO; -Acetaminophen325 M1 PO; -DOCU100 PO; -DONE10 PO; -ELIQUIS5 MG PO; -FERSU300 PO; -FURO40 PO; -METO50ER PO
[2020-07-18 11:22] LABS: Source, Urine Catheter
[2020-07-18 11:28] LABS: BASOPHILS ABSOLUTE AUTO 0.04 K/mm3 (0.00-0.23); BASOPHILS PERCENT AUTO 1 % (0-2); EOSINOPHILS ABSOLUTE AUTO 0.02 K/mm3 (0.00-0.68); EOSINOPHILS PERCENT AUTO 1 % (0-6); Hematocrit 32.7 % (33.0-51.0); Hemoglobin 9.3 g/dL (11.5-16.0); IMMATURE GRAN ABSOLUTE AUTO 0.02 K/mm3 (0.00-0.10); IMMATURE GRAN PERCENT AUTO 1 % (0-1); LYMPHOCYTES ABSOLUTE AUTO 0.92 K/mm3 (0.84-5.20); LYMPHOCYTES PERCENT AUTO 22 % (21-46); MONOCYTES ABSOLUTE AUTO 0.44 K/mm3 (0.16-1.47); MONOCYTES PERCENT AUTO 10 % (4-13); Mean Corpuscular HGB Conc 28.4 g/dL (31.5-36.5); Mean Corpuscular Volume 91 fL (80-100); Mean Platelet Volume 10.4 fL (9.1-12.4); NEUTROPHILS ABSOLUTE AUTO 2.84 K/mm3 (1.96-9.15); NEUTROPHILS PERCENT AUTO 66 % (41-73); Platelet Count 187 K/mm3 (150-400); RDW Coefficient Variation 15.9 % (11.7-14.2); RDW Standard Deviation 53.1 fL (35.1-46.3); Red Blood Cell Count 3.58 M/mm3 (3.80-5.20); White Blood Cell Count 4.28 K/mm3 (4.00-11.30)
[2020-07-18 11:49] LABS: Albumin, Blood 2.6 g/dL (3.4-5.0); Albumin/Globulin Ratio 0.6 (0.8-1.8); Bilirubin, Total 0.3 mg/dL (0.1-1.0); Bun/Creatinine Ratio 27.1 (12.0-20.0); Calcium, Blood 7.9 mg/dL (8.5-10.1); Creatinine, Blood 1.07 mg/dL (0.40-1.00); Globulin, Blood 4.6 g/dL (2.2-4.0); Potassium, Blood 4.6 mmol/L (3.5-5.5); Total Protein, Blood 7.2 g/dL (6.4-8.2)
[2020-07-18 12:44] LABS: Color, Urine Yellow (P-Yellow)
[2020-07-18 12:45] LABS: Appearance, Urine Turbid (Clear)
[2020-07-18 12:52] LABS: Bacteria Many /hpf; Mucus Heavy (0-Heavy); Squamous Epithelial Cells Not Seen /hpf (Few); Triple Phosphate Crystals Many /hpf
[2020-07-18 13:38] LABS: Magnesium, Blood 1.9 mg/dL (1.6-2.4); Phosphorus, Blood 3.2 mg/dL (2.5-4.9); Troponin I 0.023 ng/mL (0.000-0.040)
[2020-07-18 16:20] LABS: PCO2 Arterial 69.6 mmHg (35-45); PO2 Arterial 76.4 mmHg (80-100)
[2020-07-18 16:21] LABS: pH Blood Arterial 7.23 (7.35-7.45)
[2020-07-19 03:52] LABS: Hematocrit 34.5 % (33.0-51.0); Hemoglobin 9.6 g/dL (11.5-16.0); Mean Corpuscular HGB 25.5 pg (26.0-34.0); Mean Corpuscular HGB Conc 27.8 g/dL (31.5-36.5); Mean Corpuscular Volume 92 fL (80-100); Mean Platelet Volume 10.8 fL (9.1-12.4); Platelet Count 186 K/mm3 (150-400); RDW Coefficient Variation 15.9 % (11.7-14.2); RDW Standard Deviation 53.7 fL (35.1-46.3); Red Blood Cell Count 3.76 M/mm3 (3.80-5.20); White Blood Cell Count 5.63 K/mm3 (4.00-11.30)
[2020-07-19 03:58] LABS: PCO2 Arterial 71.6 mmHg (35-45); PO2 Arterial 113 mmHg (80-100); pH Blood Arterial 7.28 (7.35-7.45)
[2020-07-19 04:08] LABS: Bun/Creatinine Ratio 24.8 (12.0-20.0); Calcium, Blood 8.6 mg/dL (8.5-10.1); Creatinine, Blood 1.13 mg/dL (0.40-1.00)
--- NOTE | 2020-07-19 05:25 | NUR ---
SHIFT SUMMARY PATIENT ADMITTED TO FLOOR AT APPROXIMETLY 1945. FOUND TO BE A&OX2-3 AND VERY FORGETFUL. ASKS SAME QUESTIONS FREQUENTLY BUT IS VERY PLEASANT. FOLLOWS COMMANDS AND HOUSE. VSS. SR IN 60'S ON THE MONITOR. 3LNC SATING MID 90'S. BIPAP PUT ON FOR SLEEP AND PATIENT TOLERATED OK. NOT AN IDEAL SEAL TO MASK WITH NO DENTURES IN. INCONTINENT OF BOTH AND BM AT START OF SHIFT. THICK, MALODOUROUS URINE NOTED. PURWICK IN PLACE. PATIENT COMPLAINS OF PAIN TO BLE WITH TURNING IN BED AND FOUND TO HAVE CELLULITUS LOOKING ERYTHEMA/FLAKINESS. FOAM BOOTS IN PLACE. NO ACUTE CONCERNS AT THIS TIME. WILL CONTINUE TO MONITOR.
--- NOTE | 2020-07-19 18:19 | NUR ---
PT REQUIRES FULL FEEDING ASSISTANCE AND EXTRA TIME TO EAT; PT HAD ADEQUATE (>96%) SATURATION ON 2LNC; PUREWICK DEVICE FUNCTIONING OPTIMALLY; PT'S DAUGHTER AT BEDSIDE; PT DENIES ADDITIONAL CONCERNS AT THIS TIME; PT'S DAUGHTER DENIES ADDITIONAL CONCERNS AT THIS TIME.
[2020-07-20 03:52] LABS: Hematocrit 30.2 % (33.0-51.0); Hemoglobin 8.8 g/dL (11.5-16.0); Mean Corpuscular HGB 25.5 pg (26.0-34.0); Mean Corpuscular HGB Conc 29.1 g/dL (31.5-36.5); Mean Corpuscular Volume 88 fL (80-100); Mean Platelet Volume 10.5 fL (9.1-12.4); Platelet Count 191 K/mm3 (150-400); RDW Coefficient Variation 15.5 % (11.7-14.2); RDW Standard Deviation 49.4 fL (35.1-46.3); Red Blood Cell Count 3.45 M/mm3 (3.80-5.20); White Blood Cell Count 5.73 K/mm3 (4.00-11.30)
[2020-07-20 04:06] LABS: Albumin, Blood 2.5 g/dL (3.4-5.0); Anion Gap 2 mmol/L (6-16); Blood Urea Nitrogen 34 mg/dL (8-24); Bun/Creatinine Ratio 28.1 (12.0-20.0); CO2, Blood 35 mmol/L (21-32); Calcium, Blood 8.1 mg/dL (8.5-10.1); Chloride, Blood 101 mmol/L (98-108); Creatinine, Blood 1.21 mg/dL (0.40-1.00); Glomerular Filtration Rate 45 (60-); Glucose, Blood 93 mg/dL (70-99); Phosphorus, Blood 4.4 mg/dL (2.5-4.9); Sodium, Blood 138 mmol/L (136-145)
[2020-07-20 04:51] LABS: PCO2 Arterial 62.6 mmHg (35-45); PO2 Arterial 74.7 mmHg (80-100); pH Blood Arterial 7.37 (7.35-7.45)
--- NOTE | 2020-07-20 05:19 | NUR ---
SHIFT SUMMARY PATIENT FOUND TO BE A PLEASANTLY CONFUSED LADY WHO IS ORIENTED TO SELF ONLY. DEMENTIA HISTORY NOTED. SR/SB ON THE MONITOR. BP STABLE. AFEBRILE. SATING HIGH 90'S ON 2LNC AND BIPAP PUT ON FOR SLEEP. TOLERATED BIPAP OK BUT NOT THE BEST SEAL ON MASK D/T DENTURES. INCONTINENT OF BOTH. ATTENDS IN PLACCE. Q2H TURNS. TOTAL FEED. NO ACUTE CONCERNS AT THIS TIME. WILL CONTINUE TO MONITOR .
--- NOTE | 2020-07-20 18:08 | NUR ---
PT HAD LARGE BM AND WAS INCONTINENT OF URINE SEVERAL TIMES. PT DESATURATES WHEN NAPPING; 1LNC APPLIED. PLAN IS TO OBTAIN SLEEP STUDY FOR OXYGENATION, SPEECH SWALLOW EVALUATION, AND CASE MANAGEMENT/PIANO INSTRUCTOR DISCHARGE NEEDS PLANNING. PT DENIES ADDITIONAL CONCERNS AT THIS TIME.
[2020-07-21 03:57] LABS: Hematocrit 29.3 % (33.0-51.0); Hemoglobin 8.9 g/dL (11.5-16.0)
[2020-07-21 04:21] LABS: Albumin, Blood 2.5 g/dL (3.4-5.0); Anion Gap 3 mmol/L (6-16); Blood Urea Nitrogen 38 mg/dL (8-24); Bun/Creatinine Ratio 31.1 (12.0-20.0); CO2, Blood 36 mmol/L (21-32); Calcium, Blood 8.1 mg/dL (8.5-10.1); Chloride, Blood 95 mmol/L (98-108); Creatinine, Blood 1.22 mg/dL (0.40-1.00); Glomerular Filtration Rate 44 (60-); Glucose, Blood 97 mg/dL (70-99); Phosphorus, Blood 3.4 mg/dL (2.5-4.9); Potassium, Blood 4.3 mmol/L (3.5-5.5); Sodium, Blood 134 mmol/L (136-145)
[2020-07-21 05:20] LABS: PCO2 Arterial 57.7 mmHg (35-45); PO2 Arterial 66.9 mmHg (80-100); pH Blood Arterial 7.43 (7.35-7.45)
--- NOTE | 2020-07-21 06:10 | NUR ---
SHIFT SUMMARY PT A&O X3, PLEASANT & COOPERATIVE W/ FORGETFULNESS. PT VSS. SPO2 > 92% ON AVAPS MAJORITY OF SHIFT WHILE SLEEPING, WEARING 1L NC WHILE AWAKE. PT TOLERATING WELL. NO EVENTS OVER NIGHT. PT INCONTINENT OF URINE. PRN NIKOS CARE/ATTENDS CHANGES PROVIDED. Q2H REPOSITIONING BY 2 STAFF ASSIST. BED ALARM ON. WILL CONTINUE TO MONITOR & PROVIDE CARE UNTIL REPORT OFF TO DAY SHIFT RN.
--- NOTE | 2020-07-21 15:52 | NUR ---
SHIFT SUMMARY: PT CONTINUES A&O WITH SOME FORGETFULNESS. PT RESTS QUIETLY IN BED, NAPPING OFTEN, BUT AROUSES EASILY UPON STAFF ENTERING ROOM. VSS T/OUT SHIFT, PT MAINTAINING O2 SATS >93%, CURRENTLY RECEIVING O2 AT 2 L/MIN. PT HEART RHYTHM SR W/PAC AT BEGINNING OF SHIFT, FOUND TO HAVE A COUPLE EPISODES OF WIDE COMPLEX TACHYCARDIA, CURRENTLY IN AFIB WITH RATE IN 8Os, PT ASYMPTOMATIC. EKG COMPLETED. ATTENDS CONTINUES IN PLACE, CHANGED PRN AND Q2H TURNS MAINTAINED. AT THIS TIME, PT IS RESTING QUIETLY IN BED. WILL CONTINUE TO MONITOR AND TREAT ACCORDINGLY UNTIL CHANGE OF SHIFT.
--- NOTE | 2020-07-21 22:50 | NUR ---
CARE ASSUMPTION PT A/O X4. PT VSS. SPO2 >90% ON 3L NC. TELE SR WITH PAC. PT RESTING IN BED. WILL CONTINUE TO MONITOR AND PROVIDE CARE.
[2020-07-22 03:54] LABS: BASOPHILS ABSOLUTE AUTO 0.01 K/mm3 (0.00-0.23); BASOPHILS PERCENT AUTO 0 % (0-2); EOSINOPHILS ABSOLUTE AUTO 0.04 K/mm3 (0.00-0.68); EOSINOPHILS PERCENT AUTO 1 % (0-6); Hematocrit 29.8 % (33.0-51.0); Hemoglobin 8.8 g/dL (11.5-16.0); IMMATURE GRAN ABSOLUTE AUTO 0.01 K/mm3 (0.00-0.10); IMMATURE GRAN PERCENT AUTO 0 % (0-1); LYMPHOCYTES ABSOLUTE AUTO 1.02 K/mm3 (0.84-5.20); LYMPHOCYTES PERCENT AUTO 18 % (21-46); MONOCYTES PERCENT AUTO 18 % (4-13); Mean Corpuscular HGB 25.8 pg (26.0-34.0); Mean Corpuscular HGB Conc 29.5 g/dL (31.5-36.5); Mean Corpuscular Volume 87 fL (80-100); Mean Platelet Volume 10.7 fL (9.1-12.4); NEUTROPHILS ABSOLUTE AUTO 3.58 K/mm3 (1.96-9.15); NEUTROPHILS PERCENT AUTO 63 % (41-73); Platelet Count 183 K/mm3 (150-400); RDW Coefficient Variation 15.2 % (11.7-14.2); Red Blood Cell Count 3.41 M/mm3 (3.80-5.20); White Blood Cell Count 5.66 K/mm3 (4.00-11.30)
[2020-07-22 04:11] LABS: Bun/Creatinine Ratio 31.2 (12.0-20.0); Creatinine, Blood 1.38 mg/dL (0.40-1.00); Potassium, Blood 4.6 mmol/L (3.5-5.5)
--- NOTE | 2020-07-22 05:36 | NUR ---
SHIFT SUMMARY PT A/O X4. VSS. SPO2 >90% ON BIPAP AT 14/10 30%. TELE SR SR W PAC 60S. PT Q2HR TURNS. PT IS CURRENTLY RESTING. NO ACUTE CHANGES OVER THE SHIFT. WILL CONTINUE TO MONITOR AND PROVIDE CARE UNTIL HAND OFF.
--- NOTE | 2020-07-22 15:51 | NUR ---
PT ARRIVED TO THE MEDICAL FLOOR FROM PCU, ALERT ORIENTED TO SELF AND PLACE, PLEASANT AND COOPERATIVE, REPORT TAKEN FROM PHYLLIS ESCUDERO, THE PT WAS ORIENTED TO THE ROOM LAYOUT AND CALL SYSTEM, CALL LIGHT IN REACH, PHYSICAL THERAPIST WAS IN TO WORK WITH THE PT AND HAD HER DANGLE ON THE SIDE OF THE BED, CALL LIGHT IN REACH WILL CONTINUE TO MONITOR AND ASSESS FOR CHANGES
--- NOTE | 2020-07-22 18:04 | NUR ---
PT IS A/OX2, PLEASANT AND COOPERATIVE, PLEASANTLY CONFUSED AT TIMES, THE PT IS ON O2 @ 2L/MIN AND APPEARS TO BE BREATHING EASILY, THE PT DENIES ANY PAIN, N/V AT THIS TIME, THE PT IS RESTING IN BED CONTINUOS BIOX ON ,CALL LIGHT IN REACH, WILL CONTINUE TO MONITOR AND ASSESS FOR CHANGES
--- NOTE | 2020-07-22 18:10 | NUR ---
PT ASSISTED TO CHAIR; GIVEN BED BATH; ATE 100% OF BREAKFAST AND LUNCH; PT ON 2L NC AND SATTING >93%; TRANSFER ORDERS ENTERED; REPORT GIVEN TO KENA FALL BY PHONE AT 1451; PT LEFT AT 1515 FOR ROOM 302 VIA WHEELCHAIR ACCOMPANIED BY RN AND TECH; PT TRANSFERRED ON TELEMETRY WITH NO FLUIDS AND 2LNC.
--- NOTE | 2020-07-23 04:33 | NUR ---
89 year old Female who continues very pleasantly confused toleared wearing oxygen & CPAP with 3 l oxygen bled in to keep sats greater than 90%. Has bioxx on. PT has bilat le skin issues chronic LE edema & peeling & scaling. Barrier cream applied to promote healing & elevated LE. PT has minimal urine output. Offered supplement ensure & yogurt at HS & fed self 100%. At risk for falls, but does not attempt to climb out of bed. On tele monitor SR with PAC.
--- NOTE | 2020-07-23 16:51 | NUR ---
PT DISCHARGED THE PTS DAUGHTER VERBALIZED UNDERSTANDING OF THE PTS DC INSTRUCTIONS, AN APPOINTMENT WAS MADE FOR FOLLOW UP PRIOR TO DC, THE PTS PRESCRIPTIONS WERE FAXED TO [facility] REQUESTED, THE PT WAS A 2 PERSON TRANSFER TO THE WHEELCHAIR AND INTO THE CAR, THE PT WAS ON PORTABLE OXYGEN AT THE TIME OF DC, PT WASS ISTED BY THE PRINCIPAL ARCHAEOLOGIST AND STUDENT NURSE
== END 2020-07-23 16:48 | disposition home health service (06) | DRG 291 ==
LOC: ER 10:59 → MEDS 15:52 → PCU 19:51 → MEDS 07-22 15:21
PROVIDERS: Emergency Medicine; Internal Medicine; ADMIT Internal Medicine
PROC: 5A09357 Assistance with Respiratory Ventilation, Less than 24 Consecutive Hours, Continuous Positive Airway Pressure (ICD-10-PCS; principal; 2020-07-19)
DX: I13.0 Hypertensive heart and chronic kidney disease with heart failure and stage 1 through stage 4 chronic kidney disease, or unspecified chronic kidney disease (principal); I50.33 Acute on chronic diastolic (congestive) heart failure; J96.21 Acute and chronic respiratory failure with hypoxia; J96.22 Acute and chronic respiratory failure with hypercapnia; N39.0 Urinary tract infection, site not specified; Z66 Do not resuscitate; B95.4 Other streptococcus as the cause of diseases classified elsewhere; B96.4 Proteus (mirabilis) (morganii) as the cause of diseases classified elsewhere; J44.9 Chronic obstructive pulmonary disease, unspecified; D50.9 Iron deficiency anemia, unspecified; K21.9 Gastro-esophageal reflux disease without esophagitis; G47.30 Sleep apnea, unspecified; I27.20 Pulmonary hypertension, unspecified; N18.30 Chronic kidney disease, stage 3 unspecified; E78.5 Hyperlipidemia, unspecified; F03.90 Unspecified dementia, unspecified severity, without behavioral disturbance, psychotic disturbance, mood disturbance, and anxiety; Z96.653 Presence of artificial knee joint, bilateral; Z88.0 Allergy status to penicillin; Z79.01 Long term (current) use of anticoagulants; Z79.899 Other long term (current) drug therapy; Z86.711 Personal history of pulmonary embolism
CPT/HCPCS: 36415; 36600; 70450; 71045; 72125; 80048; 80053; 80069; 81001; 82550; 82728; 82803; 83540; 83550; 83735; 83880; 84100; 84145; 84484; 85014; 85018; 85025; 85027; 87077; 87086; 87186; 92610; 93005; 93010; 94660; 94761; 94762; 96365; 96366; 96375; 96376; 97110; 97112; 97162; 97166; 97530; 97535; 99285-25; A9270; J0456; J0696; J1940; J7040; J7050; J7120; P9612

== ENCOUNTER 2020-08-08 20:21 | Inpatient (IN) | payer MEDICARE, BC, OTHER ==
[~2020-08-08] VITALS: Ht 157.5 cm; Wt 74.0 kg
[2020-08-08 20:44] LABS: PCO2 Arterial 57.5 mmHg (35-45); PO2 Arterial 93.9 mmHg (80-100)
[2020-08-08 20:45] LABS: pH Blood Arterial 7.01 (7.35-7.45)
[2020-08-08 20:45] LABS: Calcium, Ionized (POC) 1.11 mmol/L (1.10-1.46); Chloride (POC) 111 mmol/L (98-108); Creatinine (POC) 2.1 mg/dL (0.6-1.0); Glucose (ISTAT POC) 171 mg/dL (70-99); Hemoglobin (POC) 9.9 g/dL (12.0-16.0); Potassium (POC) 5.8 mmol/L (3.5-5.5); Sodium (POC) 141 mmol/L (135-148); Total CO2 (POC) 20 mmol/L (21-32)
--- NOTE | 2020-08-08 20:48 | NUR ---
7.5 ETT, SECURED AT 22 CM AT [facility]
[2020-08-08 20:49] LABS: BASOPHILS ABSOLUTE AUTO 0.02 K/mm3 (0.00-0.23); BASOPHILS PERCENT AUTO 0 % (0-2); EOSINOPHILS PERCENT AUTO 0 % (0-6); Hematocrit 31.7 % (33.0-51.0); Hemoglobin 8.3 g/dL (11.5-16.0); IMMATURE GRAN ABSOLUTE AUTO 0.37 K/mm3 (0.00-0.10); IMMATURE GRAN PERCENT AUTO 5 % (0-1); LYMPHOCYTES ABSOLUTE AUTO 1.13 K/mm3 (0.84-5.20); LYMPHOCYTES PERCENT AUTO 14 % (21-46); MONOCYTES ABSOLUTE AUTO 0.48 K/mm3 (0.16-1.47); MONOCYTES PERCENT AUTO 6 % (4-13); Mean Corpuscular HGB 25.1 pg (26.0-34.0); Mean Corpuscular HGB Conc 26.2 g/dL (31.5-36.5); Mean Corpuscular Volume 96 fL (80-100); Mean Platelet Volume 9.6 fL (9.1-12.4); NEUTROPHILS ABSOLUTE AUTO 6.22 K/mm3 (1.96-9.15); NEUTROPHILS PERCENT AUTO 76 % (41-73); NRBC ABSOLUTE 0.17 K/mm3 (0.00-0.02); NRBC Auto 2.1 /100 WBC (0.0-0.2); Platelet Count 344 K/mm3 (150-400); RDW Coefficient Variation 16.1 % (11.7-14.2); RDW Standard Deviation 57.4 fL (35.1-46.3); Red Blood Cell Count 3.31 M/mm3 (3.80-5.20); White Blood Cell Count 8.22 K/mm3 (4.00-11.30)
[2020-08-08 21:05] LABS: International Normalized Ratio 1.38; Prothrombin Time Results 14.6 Sec (9.7-11.5)
[2020-08-08 21:11] LABS: Albumin, Blood 2.4 g/dL (3.4-5.0); Albumin/Globulin Ratio 0.5 (0.8-1.8); BAND PERCENT MAN 5 % (0-8); BASOPHILS PERCENT MAN 0 % (0-2); Bilirubin, Total 0.3 mg/dL (0.1-1.0); Bun/Creatinine Ratio 23.8 (12.0-20.0); Calcium, Blood 7.7 mg/dL (8.5-10.1); Creatinine, Blood 1.85 mg/dL (0.40-1.00); EOSINOPHILS PERCENT MAN 0 % (0-6); LYMPHOCYTES ABSOLUTE MAN 0.65 K/mm3 (0.84-5.20); LYMPHOCYTES PERCENT MAN 8 % (21-46); METAMYELOCYTE ABSOLUTE MAN 0.16 K/mm3 (0.00-0.00); METAMYELOCYTE PERCENT MAN 2 % (0-0); MONOCYTES ABSOLUTE MAN 0.16 K/mm3 (0.16-1.47); MONOCYTES PERCENT MAN 2 % (4-13); NEUTROPHILS ABSOLUTE MAN 7.23 K/mm3 (1.96-9.15); Potassium, Blood 5.8 mmol/L (3.5-5.5); SEG NEUTROPHILS PERCENT MAN 83 % (41-73); TOTAL CELLS COUNTED 100; Total Protein, Blood 7.4 g/dL (6.4-8.2); Troponin I 0.121 ng/mL (0.000-0.040)
[2020-08-08] MEDS ORDERED: PRAVASTATIN SOD10 MG PO (21:24)
[2020-08-08] MEDS ORDERED: ELIQUIS5 MG PO (21:24)
[2020-08-08] MEDS ORDERED: ALBU90OI INH (21:24)
[2020-08-08] MEDS ORDERED: OMEP20ER PO (21:25)
[2020-08-08] MEDS ORDERED: METO50ER PO (21:25)
[2020-08-08] MEDS ORDERED: DONE10 PO (21:25)
[2020-08-08] MEDS ORDERED: Acerola C500 MG PO (21:26)
[2020-08-08] MEDS ORDERED: DOCU100 PO (21:26)
[2020-08-08] MEDS ORDERED: Acetaminophen325 M1 PO (21:26)
[2020-08-08] MEDS ORDERED: FURO40 PO (21:27)
[2020-08-08] MEDS ORDERED: FERSU300 PO (21:27)
[2020-08-09 03:57] LABS: BASOPHILS ABSOLUTE AUTO 0.02 K/mm3 (0.00-0.23); BASOPHILS PERCENT AUTO 0 % (0-2); EOSINOPHILS PERCENT AUTO 0 % (0-6); Hematocrit 28.7 % (33.0-51.0); Hemoglobin 7.9 g/dL (11.5-16.0); IMMATURE GRAN ABSOLUTE AUTO 0.04 K/mm3 (0.00-0.10); IMMATURE GRAN PERCENT AUTO 0 % (0-1); LYMPHOCYTES ABSOLUTE AUTO 0.48 K/mm3 (0.84-5.20); LYMPHOCYTES PERCENT AUTO 4 % (21-46); MONOCYTES ABSOLUTE AUTO 0.53 K/mm3 (0.16-1.47); MONOCYTES PERCENT AUTO 5 % (4-13); Mean Corpuscular HGB 24.8 pg (26.0-34.0); Mean Corpuscular HGB Conc 27.5 g/dL (31.5-36.5); Mean Platelet Volume 9.8 fL (9.1-12.4); NEUTROPHILS ABSOLUTE AUTO 10.52 K/mm3 (1.96-9.15); NEUTROPHILS PERCENT AUTO 91 % (41-73); NRBC ABSOLUTE 0.02 K/mm3 (0.00-0.02); NRBC Auto 0.2 /100 WBC (0.0-0.2); Platelet Count 290 K/mm3 (150-400); RDW Coefficient Variation 15.9 % (11.7-14.2); Red Blood Cell Count 3.19 M/mm3 (3.80-5.20); White Blood Cell Count 11.59 K/mm3 (4.00-11.30)
[2020-08-09 03:58] LABS: Mean Corpuscular Volume 90 fL (80-100)
[2020-08-09 04:15] LABS: Albumin, Blood 2.4 g/dL (3.4-5.0); Albumin/Globulin Ratio 0.5 (0.8-1.8); Bilirubin, Total 0.3 mg/dL (0.1-1.0); Bun/Creatinine Ratio 26.4 (12.0-20.0); Creatinine, Blood 1.93 mg/dL (0.40-1.00); Globulin, Blood 4.5 g/dL (2.2-4.0); Potassium, Blood 5.4 mmol/L (3.5-5.5); Total Protein, Blood 6.9 g/dL (6.4-8.2)
--- NOTE | 2020-08-09 06:19 | NUR ---
END OF SHIFT SUMMARY: PATIENT INTUBATED WITH NO SEDATION. PATIENT DOES NOT FOLLOW COMMANDS AT THIS TIME BUT MOVES JAW AND IS STARTING TO MOVE FEET THIS MORNING. PROPOFOL OFF BUT STILL REQUIRING LEVOPHED AT THIS TIME. UPPER LUNGS HAVE CRACKLES. PATIENT HAS HAD NO URINE OUTPUT TONIGHT. HOSPITALIST NOTIFIED BUT NO INTERVENTION AT THIS TIME. PATIENT IN RESTRAINTS. TURNED Q2 FOR COMFORT. MINIMAL BLOODY SECRETIONS SUCTIOED FROM ETT THIS MORNING. FAMILY TO VISIT TODAY
--- NOTE | 2020-08-09 08:00 | NUR ---
PT INTUBATED, NO SEDATION. PT HAS GAG AND COUGH. WILL WITHDRAW FROM PAINFUL STIMULUS. NOT AWAKE OR FOLLOWING COMMANDS. ON LOW DOSE LEVOPHED GTT PERIPHERALLY. HAS MODERATE AMT OF JEFFERS/BLOODY SECRETIONS FROM ETT. PT HAS TEMP. REMOVED COVERS AND LOWERED TEMP IN ROOM. NO DISTRESS AT THIS TIME.
--- NOTE | 2020-08-09 09:38 | NUR ---
DAUGHTER AT BEDSIDE. STATES HER MOM HAS NOT BEEN THRIVING AT HOME FOR THE LAST COUPLE YEARS SINCE HER . DAUGHTER HAS BEEN ASSISTING WITH ALL ADL'S AND PT HAS NOT BEEN AMBULATORY. DAUGHTER TALKED ABOUT MAKING PT COMFORT CARE. PALLIATIVE CARE RN WILL BE IN TO SPEAK WITH HER WELL. DR. BARRERA HAS BEEN CONSULTED AND IS REVIEWING THE CHART. DAUGHTER IS REFUSING PT HAVE COVID SWAB AT THIS TIME SHE IS POSSIBLEY GOING COMFORT CARE AND HAS NOT HAD ANY EXPOSURES.
--- NOTE | 2020-08-09 11:23 | NUR ---
PT WAS EXTUBATED AT 1052 AND PEACEFULLY AT 1117 WITH OPERATOR COMMAND SUPPORT SYSTEMS, PALLIATIVE CARE RN, AND THIS RN AT BEDSIDE. OPERATOR COMMAND SUPPORT SYSTEMS CALLED DAUGHTER TO NOTIFY OF .
--- NOTE | 2020-08-09 11:30 | NUR ---
Spiritual care visit conducted. Spiritual care is present for the extubation. Prayers, reassuring words and holding of patient's hand are performed until TOD at 11:17. Patient's daughter, Michelle. is called by spiritual care and Michelle is notified of the of her mother. Grief support given over the phone. Michelle shows signs of being comforted as she greives appropriately.
--- NOTE | 2020-08-09 13:47 | NUR ---
pt unresponsive on ventilateor daughter at bedside. Daughter want life support withdrawn as prognsosis grim. Spent time comforting daughter and reminising. She was struggling with leaving and not seeing her mothers dying process. We settled on calling a chaplian in and advised her we would stay with her. She did cpr on her mother and was having remorse as she knows her mother did not want that intervention. After some time comforting her she was ready to leave for home. Chaplian in pt medicated and withdrawn from the ventilator. The chaplian called the daughter and gave her prayer and comfort. Will follow up with family.
== END 2020-08-09 11:17 | DRG 291 ==
LOC: ER 20:21 → ICUW 21:50 → ICUE 22:45
PROVIDERS: Emergency Medicine; Nurse Practitioner Acute Care; ADMIT Internal Medicine
PROC: 5A12012 Performance of Cardiac Output, Single, Manual (ICD-10-PCS; principal; 2020-08-08)
PROC: 3E033XZ Introduction of Vasopressor into Peripheral Vein, Percutaneous Approach (ICD-10-PCS; 2020-08-08)
PROC: 5A1935Z Respiratory Ventilation, Less than 24 Consecutive Hours (ICD-10-PCS; 2020-08-08)
PROC: 0BH18EZ Insertion of Endotracheal Airway into Trachea, Via Natural or Artificial Opening Endoscopic (ICD-10-PCS; 2020-08-08)
DX: I13.0 Hypertensive heart and chronic kidney disease with heart failure and stage 1 through stage 4 chronic kidney disease, or unspecified chronic kidney disease (principal); I50.33 Acute on chronic diastolic (congestive) heart failure; J96.01 Acute respiratory failure with hypoxia; J96.02 Acute respiratory failure with hypercapnia; N39.0 Urinary tract infection, site not specified; R57.0 Cardiogenic shock; Z66 Do not resuscitate; Z51.5 Encounter for palliative care; I27.20 Pulmonary hypertension, unspecified; I73.9 Peripheral vascular disease, unspecified; E87.5 Hyperkalemia; G47.33 Obstructive sleep apnea (adult) (pediatric); N18.30 Chronic kidney disease, stage 3 unspecified; J44.9 Chronic obstructive pulmonary disease, unspecified; E78.5 Hyperlipidemia, unspecified; B96.4 Proteus (mirabilis) (morganii) as the cause of diseases classified elsewhere; B95.4 Other streptococcus as the cause of diseases classified elsewhere; I46.2 Cardiac arrest due to underlying cardiac condition; K21.9 Gastro-esophageal reflux disease without esophagitis; K44.9 Diaphragmatic hernia without obstruction or gangrene; F03.90 Unspecified dementia, unspecified severity, without behavioral disturbance, psychotic disturbance, mood disturbance, and anxiety; Z96.653 Presence of artificial knee joint, bilateral; Z99.89 Dependence on other enabling machines and devices; Z86.711 Personal history of pulmonary embolism; Z88.0 Allergy status to penicillin; Z79.01 Long term (current) use of anticoagulants; Z79.899 Other long term (current) drug therapy
CPT/HCPCS: 36415; 36600; 70450; 71045; 80047; 80053; 82803; 82947; 84484; 85014; 85025; 85610; 85730; 93005; 93010; 93308; 93321; 96365-59; 96366-59; 96375-59; 99291-25; A9270; J0610; J1940; J2060; J2250; J2270; J2370; J2704; J3010; J7030; J7060